=== PATIENT | male | born 1955 | race Caucasian/White ===

== ENCOUNTER 2018-04-06 07:10 | Day surgery (SDC) | payer OTHER, SELFPAY ==
--- NOTE | 2018-04-06 | PATH_ITS ---
[facility] Accession Number: [id number] . 01 Material submitted: . RECTAL POLYP AT 15CM . 02 Diagnosis: Rectal Polyp at 15 cm: Hyperplastic polyp. MRV/04/08/2018 . 02 Electronically signed: . Kobe Mayen MD, PhD, Pathologist NPI- [id number] . 01 Gross description: . RECTAL POLYP AT 15CM: Received in formalin are 2 fragment(s) of morton, soft tissue measuring 0.4 x 0.3 x 0.3 cm to 0.3 x 0.2 x 0.2 cm submitted entirely in 1 cassette(s) /CKI /CKI . 02 Pathologist provided ICD-10: K62.1 . 02 CPT . 024658 Performed at: 01 [facility] [address] [facility], [place], [place] [id number] MD Amrit Wright MD Phone: [phone] Performed at: 02 [facility] [address] [place], [place] [id number] MD Sukh Dick MD Phone: [phone]
[2018-04-06 08:01] VITALS: BP 154/80; PULSE 45; RESP 16; TEMP 36.1; O2SAT 100
[2018-04-06] MEDS: SODIUM CHLORIDE 0.9% 1,000 ML 21 ML IV (08:14)
--- NOTE | 2018-04-06 08:36 | PM.HP.1 ---
History of Present Illness Date Patient Seen: 04/06/18 Time Patient Seen: 08:36 Chief complaint: colonoscopy 11328 Narrative: 63-year-old male with family history of colon cancer as well as personal history of colon polyps who last underwent surveillance colonoscopy 6 years ago and presents now for follow-up. He has no new complaints. Denies any gastrointestinal symptoms. Has no recent problems with nausea, vomiting, abdominal pain, loss of appetite, unexplained weight loss, change in bowel habits, diarrhea, constipation, melena, hematochezia, or bright red blood per rectum. Patient History Surgical History History of lithotripsy (03/14/16) History of vasectomy Status post colonoscopy Status post hernia repair Family & Social History Family History: Reviewed 04/06/18 by Shabbir Chavarria MD Social History: household members spouse Meds Home Medications Medication Instructions Recorded Confirmed Type No Known Home Medications 04/06/18 04/06/18 History Allergies Allergy/AdvReac Type Severity Reaction Status Date / Time No Known Drug Allergies Allergy Verified 04/06/18 07:53 Review of Systems Review of Systems All systems reviewed & are unremarkable except as noted in HPI and below Exam Vital Signs (past 8 hours): - 04/06/18 08:01 Temperature 96.9 F L Pulse Rate 45 L Respiratory Rate 16 Blood Pressure 154/80 H Pulse Oximetry 100 Oxygen Delivery Method Room Air Narrative Exam Narrative: Well-nourished well-developed male in no acute distress. Alert oriented x3. Sclera nonicteric No carotid bruits Chest clear to auscultation bilaterally with regular rate and rhythm. He is in sinus bradycardia at baseline however. No murmurs, gallops, rubs. Abdomen soft, nondistended, nontender, no masses Extremities show no clubbing, cyanosis, or edema Objective Labs Labs: No recent laboratory or radiographic studies for review Assessment & Plan (1) Family history of colon cancer: Current visit: Yes Status: Acute Plan: Assessment/Plan Narrative: 63-year-old male with family history of colon cancer and personal history colon polyps now requiring surveillance for such. His last colonoscopy was 6 years ago. He returns now for follow-up. Colonoscopy is once again recommended. Technical details of the procedure were explained. Risks, benefits, alternatives were discussed. Risks including but not limited to sedation, aspiration, bleeding, pain, missed lesion, incomplete examination, need for further radiographic studies, colonic perforation, and need for major abdominal surgery were all discussed in detail. Questions were answered to his satisfaction, and he voiced understanding. Consent was placed on the chart. We will proceed as above.
--- NOTE | 2018-04-06 08:40 | PM.PREOP ---
Pre-operative Note Interval Note Pre-op Check: History & Physical Reviewed by Physician, Exam Performed and History & Physical exam performed today H&P completed within 30 days and has changed as indicated here:: Patient seen and examined today. History and physical examination on the chart. Proceed with colonoscopy today as planned. ASA Class (for procedural sedation): I
[2018-04-06] MEDS: MIDAZOLAM 5 MG/5 ML VIAL IV (08:45)
[2018-04-06] MEDS: fentaNYL 250 MCG/5 ML INJ IV (08:45)
--- NOTE | 2018-04-06 08:59 | PM.OP.ENDO ---
Operative Date/Time/Diagnoses - Date of procedure: 04/06/18 Time of procedure: 08:59 Pre-op diagnosis: Personal history of colon polyps and family history of colon cancer Post-op diagnosis: other (Rectal polyp) Procedure & Clinicians Study performed: 1. Sedation per surgeon 2. Colonoscopy with cold forceps polypectomy Same procedure as scheduled: Yes Indications: 63-year-old male with personal history of colon polyps and family history of colon cancer. His last endoscopy was 6 years ago. He require surveillance. Colonoscopy is once again recommended. Surgeon: Shabbir Chavarria Procedure Notes SCOAP/Timeout: Yes Procedure in detail: After obtaining informed consent, the patient was brought to the GI suite and placed in the left lateral decubitus position on the examination table. After placement of appropriate monitors, the patient was given incremental doses of Versed and Fentanyl until an appropriate level of sedation was achieved. A time out was held per SCOAP protocol. A digital rectal examination was performed and did not reveal any masses or obstructing lesions. The colonoscope was gently passed into the patient's anus and the entire colon navigated to the level of the cecum with minimal difficulty. Once in the cecum, the scope was withdrawn being sure to go before and beyond all mucosal folds and prominences and get an excellent examination. The findings are noted above. At the level of the rectal vault, the scope was retroflexed and the internal anal canal was examined. The scope was straightened and air aspirated from the colon. The instrument was removed from the patient's body and the procedure was concluded. The patient was allowed to awaken from sedation without difficulty and taken to the post-anesthesia care unit in good condition. Scope withdrawal time: 7:44 min Sedation minutes: 14 Findings: diverticulosis and polyp (Rectum at 15 cm) Specimen(s): other (Rectal polyp at 15 cm) Complications: none Recommendations: Colonscopy in 5 years, High fiber diet and Will call with biopsy results Plan for aftercare: 1. Discharged home Follow up: as needed Disposition: same day surgery
[2018-04-06 09:06] VITALS: BP 121/68; PULSE 49; RESP 15; TEMP 36.5; O2SAT 100
[2018-04-06 09:39] VITALS: BP 126/66; PULSE 50; RESP 16; TEMP 36.6; O2SAT 100
== END 2018-04-06 09:38 | disposition home or self-care (01) ==
PROVIDERS: PCP Nurse Practitioner; Visit Provider Surgery
PROC: 0DJD8ZZ Inspection of Lower Intestinal Tract, Via Natural or Artificial Opening Endoscopic (ICD-10-PCS; CPT 45378; principal; 2018-04-06 08:45)
DX: Z80.0 Family history of malignant neoplasm of digestive organs (principal); Z86.010 Personal history of colon polyps; K57.30 Diverticulosis of large intestine without perforation or abscess without bleeding; K62.1 Rectal polyp
CPT/HCPCS: 45380; 99152; J2250; J3010

== ENCOUNTER → 2018-05-20 08:57 | Outpatient (CLI) | payer OTHER, SELFPAY ==
--- NOTE | 2018-05-20 09:06 | DI.RAD.S_ITS ---
PROCEDURE: XR ABDOMEN 1V INDICATIONS: CALCULUS OF KIDNEY TECHNIQUE: One view of the abdomen acquired. COMPARISON: , CT, IVP (ABD & PEL WWO CONTRAST), 02/19/2016, 14:33. [facility], CR, XR KUB, 10/24/2016, 7:20. , CR, KUB XRAY (1 VIEW ABDOMEN), 11/07/2016, 12:57. FINDINGS: Surgical changes and devices: None. Bowel: Bowel gas pattern is normal. Soft tissues: No new suspicious abdominal calcifications there appears to be a single identifiable faintly visualized calculus at the lower third collecting system of the left kidney a definite right-sided urinary tract stone cannot be seen by today's study.. Visualized solid organ contours appear normal in size. Bones: No suspicious bony lesions. IMPRESSION: Small 2 mm calculus lower third collecting system left kidney. Dictated by: Mynor Sánchez M.D. on 05/20/2018 at 9:35 Approved by: Mynor Sánchez M.D. on 05/20/2018 at 9:37
[2018-05-22 13:32] LABS: PSA Free % 14 % (calc) (> 25); PSA, Total 5.6 ng/mL (< 4.1)
== END ==
PROVIDERS: PCP Nurse Practitioner; Visit Provider Urology
DX: N20.0 Calculus of kidney (principal); Z12.5 Encounter for screening for malignant neoplasm of prostate
CPT/HCPCS: 36415; 74018; 84153; 84154

== ENCOUNTER → 2018-11-12 07:37 | Outpatient (CLI) | payer OTHER, SELFPAY ==
[2018-11-12 08:17] LABS: Add Manual Diff / Slide Review NO; Basophils Absolute Auto 0 /uL (0-100); Basophils Percent Auto 0.7 % (0-2); Eosinophils Absolute Auto 100 /uL (0-450); Eosinophils Percent Auto 3.3 % (2-4); Hematocrit 48.5 % (41-53); Hemoglobin 16.2 g/dL (13.5-17.5); Lymphocytes Absolute Auto 1600 /uL (1100-4500); Lymphocytes Percent Auto 36.8 % (25-40); Mean Corpuscular HGB Conc 33.3 % (30-36); Mean Corpuscular Hemoglobin 32.7 PG (26-34); Mean Corpuscular Volume 98.2 fL (80-100); Monocytes Absolute Auto 500 /uL (0-900); Monocytes Percent Auto 10.7 % (3-14); Neutrophils Absolute Auto 2200 /uL (1500-7000); Neutrophils Percent Auto 48.5 % (50-75); Platelet Count 218 X10^3/uL (150-400); Red Blood Cell Count 4.93 X10^6/uL (4.5-5.9); Red Cell Distribution Width 13.9 % (11.6-14.8); White Blood Cell Count 4.5 X10^3/uL (4.5-11.0)
[2018-11-12 09:05] LABS: Alanine Aminotransferase 37 IU/L (21-72); Albumin 4.7 g/dL (3.5-5.0); Albumin Globulin Ratio 1.4 (1.0-2.8); Alkaline Phosphatase 53 U/L (38-126); Aspartate Aminotransferase 40 IU/L (17-59); Bilirubin Total 0.7 mg/dL (0.2-1.3); Blood Urea Nitrogen 18 mg/dL (9-20); Calcium 9.4 mg/dL (8.4-10.2); Carbon Dioxide 27 mmol/L (22-32); Chloride 104 mmol/L (98-107); Cholesterol 186 mg/dL (140-199); Estimated Glomerular Filt Rate > 60.0 mL/min (>60); Globulin 3.4 g/dL (1.7-4.1); Glucose 86 mg/dL (80-110); HDL Cholesterol 95 mg/dL (40-60); HEMOLYSIS < 15 (0-50); LDL Cholesterol Calculated 80 mg/dL (<100); Potassium 4.8 mmol/L (3.4-5.1); Sodium 141 mmol/L (137-145); Total Protein 8.1 g/dL (6.3-8.2); Triglycerides 57 mg/dL (35-150)
[2018-11-12 09:26] LABS: Prostate Specific Antigen Scrn 4.37 ng/mL (0.1-4.0)
[2018-11-12 09:27] LABS: TSH w/ Reflex to FT4 1.08 uIU/mL (0.47-4.68)
== END ==
PROVIDERS: Visit Provider Family Medicine
DX: Z00.00 Encounter for general adult medical examination without abnormal findings (principal); Z12.11 Encounter for screening for malignant neoplasm of colon; Z12.5 Encounter for screening for malignant neoplasm of prostate
CPT/HCPCS: 36415; 80053; 80061; 84443; 85025; G0103

== ENCOUNTER → 2019-11-10 08:39 | Outpatient (CLI) | payer OTHER, SELFPAY ==
[2019-11-10 08:58] LABS: Hematocrit 45.4 % (41-53); Hemoglobin 15.2 g/dL (13.5-17.5); Mean Corpuscular HGB Conc 33.4 % (30-36); Mean Corpuscular Hemoglobin 32.5 PG (26-34); Mean Corpuscular Volume 97.4 fL (80-100); Platelet Count 201 X10^3/uL (150-400); Red Blood Cell Count 4.66 X10^6/uL (4.5-5.9); Red Cell Distribution Width 13.9 % (11.6-14.8); White Blood Cell Count 3.2 X10^3/uL (4.5-11.0)
[2019-11-10 09:08] LABS: Alanine Aminotransferase 29 IU/L (<50); Albumin 4.3 g/dL (3.5-5.0); Albumin Globulin Ratio 1.3 (1.0-2.8); Alkaline Phosphatase 51 U/L (38-126); Aspartate Aminotransferase 37 IU/L (17-59); Bilirubin Total 1.1 mg/dL (0.2-1.3); Blood Urea Nitrogen 18 mg/dL (9-20); Calcium 9.2 mg/dL (8.4-10.2); Carbon Dioxide 27 mmol/L (22-32); Chloride 102 mmol/L (98-107); Estimated Glomerular Filt Rate > 60.0 mL/min (>60); Globulin 3.4 g/dL (1.7-4.1); Glucose 107 mg/dL (80-110); HEMOLYSIS < 15 (0-50); Potassium 4.5 mmol/L (3.4-5.1); Sodium 139 mmol/L (137-145); Total Protein 7.7 g/dL (6.3-8.2)
[2019-11-10 09:33] LABS: Neutrophils Absolute Manual 1888 /uL (3000-5900); Total Cells Counted 100
[2019-11-10 09:34] LABS: RBC Morphology Normal Morphology
[2019-11-10 09:38] LABS: Prostate Specific Antigen Scrn 3.68 ng/mL (0.1-4.0)
== END ==
PROVIDERS: PCP Nurse Practitioner; Visit Provider Nurse Practitioner
DX: Z00.00 Encounter for general adult medical examination without abnormal findings (principal)
CPT/HCPCS: 36415; 80053; 85025; G0103

== ENCOUNTER → 2020-02-04 08:33 | Outpatient (CLI) | payer OTHER, SELFPAY ==
[2020-02-04 10:42] LABS: Cholesterol 200 mg/dL (140-199); HDL Cholesterol 102 mg/dL (40-60); LDL Cholesterol Calculated 88 mg/dL (<100); Triglycerides 50 mg/dL (35-150)
[2020-02-04 11:08] LABS: Thyroid Stimulating Hormone 1.36 uIU/mL (0.47-4.68)
[2020-02-07 13:09] LABS: Add Manual Diff / Slide Review NO; Basophils Absolute Auto 0 /uL (0-100); Basophils Percent Auto 0.8 % (0-2); Eosinophils Absolute Auto 200 /uL (0-450); Eosinophils Percent Auto 3.6 % (2-4); Hematocrit 48.3 % (41-53); Lymphocytes Absolute Auto 1500 /uL (1100-4500); Lymphocytes Percent Auto 33.9 % (25-40); Mean Corpuscular HGB Conc 33.2 % (30-36); Mean Corpuscular Hemoglobin 33.2 PG (26-34); Monocytes Absolute Auto 400 /uL (0-900); Monocytes Percent Auto 9.9 % (3-14); Neutrophils Absolute Auto 2200 /uL (1500-7000); Neutrophils Percent Auto 51.8 % (50-75); Platelet Count 208 X10^3/uL (150-400); Red Blood Cell Count 4.84 X10^6/uL (4.5-5.9); Red Cell Distribution Width 14.2 % (11.6-14.8); White Blood Cell Count 4.3 X10^3/uL (4.5-11.0)
== END ==
PROVIDERS: PCP Nurse Practitioner; Referring Provider Nurse Practitioner; Visit Provider Nurse Practitioner
DX: Z00.00 Encounter for general adult medical examination without abnormal findings (principal); Z13.220 Encounter for screening for lipoid disorders; Z13.29 Encounter for screening for other suspected endocrine disorder; D72.819 Decreased white blood cell count, unspecified; R89.9 Unspecified abnormal finding in specimens from other organs, systems and tissues
CPT/HCPCS: 36415; 80061; 84439; 84443; 84481; 85025

== ENCOUNTER → 2021-04-02 11:44 | Outpatient (CLI) | payer MEDICARE, SELFPAY ==
[2021-04-02 12:06] LABS: Bacteria Urine None Seen; RBC Urine None Seen (0-5/HPF); WBC Urine None Seen (0-5/HPF)
[2021-04-02 12:52] LABS: Appearance Urine UA CLEAR; Bilirubin Urine UA NEGATIVE (NEGATIVE); Color Urine UA YELLOW; Glucose Urine UA NEGATIVE (Negative); Ketones Urine UA TRACE (NEGATIVE); Leukocyte Esterase Urine UA NEGATIVE (NEGATIVE); Nitrite Urine UA NEGATIVE (Negative); Occult Blood Urine UA NEGATIVE (Negative); Protein Urine UA NEGATIVE (Negative); Specific Gravity Urine UA 1.025 (1.000-1.035); Urobilinogen Urine UA 0.2 E.U./dL (0.2); pH Urine UA 5.5 (4.5-8.0)
[2021-04-02 12:54] LABS: Hemoglobin A1C% w Est Avg Glu 5.1 % (4.0-6.0)
[2021-04-02 12:58] LABS: Add Manual Diff / Slide Review NO; Basophils Absolute Auto 0 /uL (0-100); Basophils Percent Auto 0.5 % (0-2); Eosinophils Absolute Auto 100 /uL (0-450); Eosinophils Percent Auto 3.2 % (2-4); Hematocrit 44.8 % (41-53); Lymphocytes Absolute Auto 1200 /uL (1100-4500); Mean Corpuscular HGB Conc 33.6 % (30-36); Mean Corpuscular Hemoglobin 33.2 PG (26-34); Mean Corpuscular Volume 98.9 fL (80-100); Monocytes Absolute Auto 400 /uL (0-900); Monocytes Percent Auto 10.5 % (3-14); Neutrophils Absolute Auto 2300 /uL (1500-7000); Neutrophils Percent Auto 56.8 % (50-75); Platelet Count 202 X10^3/uL (150-400); Red Blood Cell Count 4.53 X10^6/uL (4.5-5.9); Red Cell Distribution Width 13.9 % (11.6-14.8)
[2021-04-02 13:08] LABS: Alanine Aminotransferase 28 IU/L (<50); Albumin 4.4 g/dL (3.5-5.0); Albumin Globulin Ratio 1.4 (1.0-2.8); Alkaline Phosphatase 53 U/L (38-126); Aspartate Aminotransferase 36 IU/L (17-59); BUN Creatinine Ratio 22.5 (6-22); Bilirubin Total 0.9 mg/dL (0.2-1.3); Blood Urea Nitrogen 18 mg/dL (9-20); Calcium 9.2 mg/dL (8.4-10.2); Carbon Dioxide 27 mmol/L (22-32); Chloride 105 mmol/L (98-107); Cholesterol 196 mg/dL (140-199); Estimated Glomerular Filt Rate > 60.0 mL/min (>60); Globulin 3.2 g/dL (1.7-4.1); Glucose 88 mg/dL (80-110); HDL Cholesterol 100 mg/dL (40-60); HEMOLYSIS < 15 (0-50); LDL Cholesterol Calculated 88 mg/dL (<100); Potassium 4.7 mmol/L (3.4-5.1); Sodium 141 mmol/L (137-145); Total Protein 7.6 g/dL (6.3-8.2); Triglycerides 40 mg/dL (35-150)
[2021-04-02 13:21] LABS: Culture Indicated Urine Cult Not Indicated; Urine Comments Microscopic Normal
[2021-04-02 13:35] LABS: Prostate Specific Antigen 3.73 ng/mL (0.10-4.00)
[2021-04-02 13:46] LABS: Free T3, Triiodothyronine Free 3.93 pg/mL (2.77-5.27); Free T4, Direct Thyroxine 0.74 ng/dL (0.78-2.19)
[2021-04-02 14:00] LABS: Thyroid Stimulating Hormone 0.429 uIU/mL (0.47-4.68)
[2021-04-03 09:17] LABS: Fecal Immunochemical Test Negative (Negative)
== END ==
PROVIDERS: PCP Nurse Practitioner; Referring Provider Nurse Practitioner; Visit Provider Nurse Practitioner
DX: D72.819 Decreased white blood cell count, unspecified (principal); R79.89 Other specified abnormal findings of blood chemistry; R97.20 Elevated prostate specific antigen [PSA]; R31.9 Hematuria, unspecified; Z12.11 Encounter for screening for malignant neoplasm of colon; Z13.6 Encounter for screening for cardiovascular disorders; Z12.5 Encounter for screening for malignant neoplasm of prostate; Z13.1 Encounter for screening for diabetes mellitus
CPT/HCPCS: 36415; 80053; 80061; 81001; 82274; 83036; 84153; 84439; 84443; 84481; 85025

== ENCOUNTER → 2021-04-05 09:35 | Outpatient (CLI) | payer MEDICARE, SELFPAY ==
--- NOTE | 2021-04-05 09:36 | DI.US.S_ITS ---
PROCEDURE: US ABD AORTA ANEURYSM SCREEN INDICATIONS: HX SMOKING TECHNIQUE: Real time scanning was performed of the aorta and iliac arteries, with image documentation. COMPARISON: None. FINDINGS: Aorta: Proximal aortic diameter could not be measured due to overlying bowel gas. Mid-aorta measures 1.8 cm. Distal aortic diameter is 1.8 cm. Iliac arteries: Right common iliac artery measures 1.4 cm. Left common iliac artery measures 1.3 cm. IMPRESSION: No aneurysm seen. Proximal abdominal aorta could not be seen due to bowel gas. Dictated by: Mynor Sánchez M.D. on 04/05/2021 at 9:54 Approved by: Mynor Sánchez M.D. on 04/05/2021 at 9:55
== END ==
PROVIDERS: PCP Nurse Practitioner; Referring Provider Nurse Practitioner; Visit Provider Nurse Practitioner
DX: Z13.6 Encounter for screening for cardiovascular disorders (principal); Z87.891 Personal history of nicotine dependence
CPT/HCPCS: 76706

== ENCOUNTER → 2021-09-10 07:12 | Outpatient (CLI) | payer MEDICARE, SELFPAY ==
--- NOTE | 2021-09-10 | DI.MRI.S_ITS ---
PROCEDURE: MR SHOULDER RT WO CON INDICATIONS: LEFT KNEE PAIN; RIGHT SHOULDER PAIN TECHNIQUE: Noncontrast oblique coronal T2 fast spin echo with fat saturation, oblique sagittal T1 spin echo and T2 fast spin echo with fat saturation, axial T1 spin echo and T2 fast spin echo with fat saturation through the shoulder. COMPARISON: None. FINDINGS: Image quality: Excellent. Rotator cuff: Advanced tendinopathy with full-thickness tear of the supraspinatus (series 8, image 13; series 10, image 5). Moderate infraspinatus tendinopathy with partial articular surface and interstitial tears. T2 hyperintense signal within the subscapularis musculotendinous junction, compatible with interstitial tear. Mild to moderate subscapularis tendinopathy. The teres minor is unremarkable. Sagittal images demonstrate no significant muscle atrophy. Bones and bursae: No bone marrow contusions or fractures. Moderate arthrosis of the acromioclavicular joint. No os acromiale. Subacromial/subdeltoid fluid is seen, which may reflect bursitis and/or joint fluid. Capsule and soft tissues: A 3.8 mm T2 hyperintense lesion is seen in the posterior inferior labrum (series 6, image 16), most consistent with labral cyst /occult labral tear. The long head of the biceps tendon demonstrates normal location and morphology. The rotator interval demonstrates no evidence of fibrosis. The coracoclavicular ligament is normal in thickness. IMPRESSION: 1. Advanced supraspinatus tendinopathy with full-thickness tear. 2. Moderate infraspinatus tendinopathy with partial articular surface and interstitial tears. 3. Subacromial/subdeltoid fluid, which may reflect bursitis and/or joint fluid. 4. Moderate arthrosis of the AC joint. 5. Mild to moderate subscapularis tendinopathy with interstitial tear. Dictated by: Kristopher Guillaume M.D. on 09/10/2021 at 12:10 Approved by: Kristopher Guillaume M.D. on 09/10/2021 at 12:24
--- NOTE | 2021-09-10 | DI.MRI.S_ITS ---
PROCEDURE: MR KNEE LT WO CON INDICATIONS: LEFT KNEE PAIN; RIGHT SHOULDER PAIN TECHNIQUE: Noncontrast sagittal PD fast spin echo and T2 fast spin echo with fat saturation, sagittal 3-D FLASH with fat saturation; coronal T1 spin echo and PD fast spin echo with fat saturation, and axial PD fast spin echo with fat saturation through the knee. COMPARISON: [facility], CR, XR KNEE ARTHRITIC SERIES LT, 08/20/2021, 8:47. FINDINGS: Image quality: Excellent. Menisci: There is complex tearing of the posterior horn and body of the medial meniscus including a horizontal oblique component at the posterior horn extending to the middle third of the tibial articular surface as well as truncation of the meniscal body portion that is suggestive of a deep radial component versus degenerated tear with maceration. The lateral meniscus demonstrates mild intermediate intrasubstance signal without extension to an articular surface, consistent with mild intrasubstance degeneration. Cruciate ligaments: The anterior and posterior cruciate ligaments appear intact. Medial structures: The medial collateral ligament appears intact. The semimembranosus tendon insertions and meniscocapsular junction appear intact. Visualized portions of the pes anserinus tendons appear normal. No abnormal bursal fluid. Lateral structures: The lateral collateral ligament, long and short heads of the biceps femoris tendon appear intact. The popliteus tendon appears intact. No signs of posterolateral corner injury. Iliotibial band appears normal. Anterior structures: The quadriceps and patellar tendons appear intact. Patellar alignment is normal. No femoral trochlear dysplasia or ventral trochlear prominence. No edema in the infrapatellar fat pad. Bones and cartilage: No bone marrow contusions or fractures. A 1 cm T2-hyperintense benign enchondroma is seen in the medial distal femoral metaphysis. There is high-grade partial-thickness cartilage thinning throughout the weight-bearing portion of the medial femorotibial compartment with superimposed small foci of full-thickness cartilage loss and subchondral edema as well as marginal osteophyte formation. Moderate partial-thickness cartilage irregularity is seen in the central to posterior weight-bearing portion of the lateral femoral condyle. There is full-thickness cartilage fissuring in the medial femoral trochlea and mild surface irregularity throughout the patellar cartilage. Degenerative changes are also seen at the proximal tibiofibular joint with subchondral cystic changes and mild marginal osteophyte formation. Joint space: A small joint effusion is present. There is a small medial popliteal cyst. A small lobular ganglion cyst is seen extending inferomedially from the proximal tibiofibular joint measuring approximately 12 x 10 mm. IMPRESSION: 1. 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 Grade 2-3 chondromalacia is seen in the lateral compartment, and there is grade 2 chondromalacia and deep cartilage fissuring in the anterior compartment. 2. Complex tearing of the medial meniscus with horizontal oblique and radial components, which may be degenerative in nature. 3. Mild intrasubstance degeneration involving the lateral meniscus. 4. Small joint effusion. Small medial popliteal cyst. Dictated by: Christian Summers M.D. on 09/10/2021 at 9:51 Approved by: Christian Summers M.D. on 09/10/2021 at 10:05
== END ==
PROVIDERS: PCP Nurse Practitioner; Referring Provider Orthopaedic Surgery; Visit Provider Orthopaedic Surgery
DX: S83.231A Complex tear of medial meniscus, current injury, right knee, initial encounter (principal); M23.52 Chronic instability of knee, left knee; M17.12 Unilateral primary osteoarthritis, left knee; M71.22 Synovial cyst of popliteal space [Baker], left knee; M25.461 Effusion, right knee; M94.262 Chondromalacia, left knee; M25.562 Pain in left knee; M75.121 Complete rotator cuff tear or rupture of right shoulder, not specified as traumatic; M19.011 Primary osteoarthritis, right shoulder; M25.511 Pain in right shoulder
CPT/HCPCS: 73221; 73721

== ENCOUNTER → 2022-10-09 14:06 | Outpatient (CLI) | payer MEDICARE, SELFPAY ==
--- NOTE | 2022-10-09 14:08 | DI.RAD.S_ITS ---
PROCEDURE: XR FINGER LT MIN 2V INDICATIONS: Pain over 1st MCP TECHNIQUE: AP hand, 2 views of the 1st finger(s) acquired. COMPARISON: None. FINDINGS: Bones: No fractures or dislocations. No suspicious bony lesions. Mild periarticular osteophyte formation at the scaphoid trapezial, 1st carpometacarpal joint, and 1st metacarpophalangeal joint. Soft tissues: No suspicious soft tissue calcifications. IMPRESSION: Osteoarthritis. No acute fracture. No osseous lesion. If symptoms and/or clinical suspicion for pathology persist, further assessment with repeat, or advanced imaging (e.g., CT, MRI, or bone scan) may be helpful for further assessment. Dictated by: Naeem Jimenez M.D. on 10/09/2022 at 15:00 Transcribed by: RIGO on 10/09/2022 at 15:01 Approved by: Naeem Jimenez M.D. on 10/09/2022 at 17:55
== END ==
PROVIDERS: PCP Family Medicine; Referring Provider Family Medicine; Visit Provider Family Medicine
DX: S60.012A Contusion of left thumb without damage to nail, initial encounter (principal); M19.042 Primary osteoarthritis, left hand; X58.XXXA Exposure to other specified factors, initial encounter
CPT/HCPCS: 73140

== ENCOUNTER → 2023-01-25 09:38 | Outpatient (CLI) | payer MEDICARE, SELFPAY | PROVIDERS: PCP Family Medicine; Visit Provider Nurse Practitioner Family | DX: R10.9 Unspecified abdominal pain (principal) | CPT/HCPCS: 87086 ==

== ENCOUNTER → 2023-01-25 09:44 | Outpatient (CLI) | payer MEDICARE, SELFPAY ==
--- NOTE | 2023-01-25 09:46 | DI.RAD.S_ITS ---
PROCEDURE: XR KUB INDICATIONS: Possible kidney stones TECHNIQUE: One view of the abdomen acquired. COMPARISON: [facility], , KUB XRAY (1 VIEW ABDOMEN), 11/07/2016, 12:57. FINDINGS: Surgical changes and devices: None. Bowel: Bowel gas pattern is normal. Soft tissues: Small calcifications are noted projecting in left kidney measures 4 mm in size. Faint 2 mm density is also noted in lower pole right kidney. Visualized solid organ contours appear normal in size. Bones: No suspicious bony lesions. IMPRESSION: Finding is suggestive of tiny bilateral renal calculi. No bowel obstruction or gross free air. Dictated by: John Morales M.D. on 01/25/2023 at 10:59 Approved by: John Morales M.D. on 01/25/2023 at 11:00
== END ==
PROVIDERS: PCP Family Medicine; Referring Provider Nurse Practitioner Family; Visit Provider Nurse Practitioner Family
DX: R30.0 Dysuria (principal); R10.9 Unspecified abdominal pain
CPT/HCPCS: 74018; 87086

== ENCOUNTER → 2023-01-30 13:16 | Outpatient (CLI) | payer MEDICARE, SELFPAY ==
--- NOTE | 2023-01-30 13:17 | DI.CT.S_ITS ---
PROCEDURE: CT ABDOMEN PELVIS WO CON INDICATIONS: bilat kidney stones, flank pain TECHNIQUE: After the administration of oral contrast, 5 mm thick sections acquired from the diaphragms to the symphysis. 5 mm coronal and sagittal reformats were performed. For radiation dose reduction, the following was used: automated exposure control, adjustment of mA and/or kV according to patient size. COMPARISON: None. FINDINGS: Lower thorax: The lung bases are clear. Heart size normal. No hiatal hernia. Liver: The liver is diffusely decreased in attenuation without focal mass lesion. Biliary system: No calcified cholelithiasis or pericholecystic inflammation. No intra or extrahepatic bile duct dilatation. Pancreas: Unremarkable without mass or inflammation evident. Spleen: Normal in size and density. Adrenals: Normal morphology and density. Reproductive system: Unremarkable as visualized. Urinary system: 5 mm ureteral calcification distal right ureter results in moderate right hydronephrosis and hydroureter. Several additional nonobstructing calculi noted predominantly in left kidney measuring up to 5 mm Gastrointestinal system: The bowel is unremarkable without evidence of bowel obstruction or inflammation. The stomach appears unremarkable. Moderate fecal debris in the rectum Appendix: Normal appendix identified. No evidence of appendicitis. Peritoneal spaces: No mesenteric or retroperitoneal adenopathy. No free air. No free fluid. Vasculature: The IVC, aorta and iliac vasculature are unremarkable. Abdominal wall: Abdominal wall intact without evidence of ventral or inguinal hernias. Musculoskeletal: Normal bone mineralization. Degenerative disc disease and arthropathy noted in lower lumbar spine. No acute fractures. IMPRESSION: 1. Small 5 mm distal right ureteral calculus results in moderate right hydronephrosis and hydroureter Approved by: Pietro Villegas M.D. on 01/30/2023 at 20:25
== END ==
PROVIDERS: PCP Family Medicine; Referring Provider Family Medicine; Visit Provider Family Medicine
DX: N13.2 Hydronephrosis with renal and ureteral calculous obstruction (principal); R10.9 Unspecified abdominal pain; M10.9 Gout, unspecified
CPT/HCPCS: 74176

== ENCOUNTER → 2023-02-18 11:30 | Outpatient (CLI) | payer MEDICARE, SELFPAY ==
[2023-02-18 13:03] LABS: Add Manual Diff / Slide Review NO; Basophils Absolute Auto 0 /uL (0-100); Basophils Percent Auto 0.6 % (0-2); Eosinophils Absolute Auto 100 /uL (0-450); Eosinophils Percent Auto 1.7 % (2-4); Hematocrit 41.5 % (41-53); Hemoglobin 14.2 g/dL (13.5-17.5); Lymphocytes Absolute Auto 1100 /uL (1100-4500); Lymphocytes Percent Auto 29.7 % (25-40); Mean Corpuscular HGB Conc 34.2 % (30-36); Mean Corpuscular Hemoglobin 32.8 PG (26-34); Mean Corpuscular Volume 95.8 fL (80-100); Monocytes Absolute Auto 400 /uL (0-900); Monocytes Percent Auto 11.8 % (3-14); Neutrophils Absolute Auto 2100 /uL (1500-7000); Neutrophils Percent Auto 56.2 % (50-75); Platelet Count 192 X10^3/uL (150-400); Red Blood Cell Count 4.33 X10^6/uL (4.5-5.9); White Blood Cell Count 3.7 X10^3/uL (4.5-11.0)
[2023-02-18 13:32] LABS: Alanine Aminotransferase 44 IU/L (<50); Albumin 4.1 g/dL (3.5-5.0); Albumin Globulin Ratio 1.3 (1.0-2.8); Alkaline Phosphatase 54 U/L (38-126); Aspartate Aminotransferase 37 IU/L (17-59); BUN Creatinine Ratio 23.4 (6-22); Bilirubin Total 0.9 mg/dL (0.2-1.3); Blood Urea Nitrogen 18 mg/dL (9-20); Calcium 8.8 mg/dL (8.4-10.2); Carbon Dioxide 25 mmol/L (22-32); Chloride 105 mmol/L (98-107); Cholesterol 169 mg/dL (140-199); Estimated Glomerular Filt Rate > 60 mL/min (>60); Globulin 3.2 g/dL (1.7-4.1); Glucose 94 mg/dL (80-110); HDL Cholesterol 92 mg/dL (40-60); HEMOLYSIS < 15 (0-50); LDL Cholesterol Calculated 70 mg/dL (<100); Potassium 4.6 mmol/L (3.4-5.1); Sodium 136 mmol/L (137-145); Total Protein 7.3 g/dL (6.3-8.2); Triglycerides 33 mg/dL (35-150)
[2023-02-18 14:01] LABS: Prostate Specific Antigen Scrn 3.83 ng/mL (0.1-4.0)
[2023-02-18 14:05] LABS: TSH w/ Reflex to FT4 0.68 uIU/mL (0.47-4.68)
[2023-02-19 05:19] LABS: Labcorp Hemoglobin (Hb) A1c 5.6 % (4.8-5.6)
== END ==
PROVIDERS: PCP Family Medicine; Referring Provider Family Medicine; Visit Provider Family Medicine
DX: E03.8 Other specified hypothyroidism; R97.20 Elevated prostate specific antigen [PSA]; Z12.5 Encounter for screening for malignant neoplasm of prostate; N20.0 Calculus of kidney; D72.819 Decreased white blood cell count, unspecified; Z00.00 Encounter for general adult medical examination without abnormal findings
CPT/HCPCS: 36415; 80053; 80061; 83036; 84443; 85025; G0103

== ENCOUNTER 2023-07-10 09:10 | Day surgery (SDC) | payer MEDICARE, SELFPAY ==
--- NOTE | 2023-07-10 | PATH_ITS ---
[facility] Accession Number: [id number] No. of containers..02 Tissue . 01 Material submitted: . PART A: colon - ASCENDING POLYPS PART B: rectum - RECTAL TISSUE . 01 Diagnosis: A. Ascending Colon Polyps, Polypectomy: Tubular adenoma(s). Sessile serrated adenoma(s). . B. Rectum, Biopsy: Rectal mucosa with changes of mucosal prolapse and erosion. MRV 07/15/2023 2253 Local . 01 Electronically signed: . Gladis Blackman MD, Pathologist NPI- [id number] . 01 Gross description: . Part A: ASCENDING POLYPS: Received in formalin is multiple fragment(s) of morton, soft tissue measuring 1.5 x 1.0 x 0.2 cm in aggregate submitted entirely in 1 cassette(s) Part B: RECTAL TISSUE: Received in formalin is 1 fragment(s) of morton, soft tissue measuring 0.3 x 0.2 x 0.2 cm submitted entirely in 1 cassette(s) /AAY 07/11/2023 0325 Local . 01 Pathologist provided ICD-10: D12.6 . 01 CPT . 404268, [id number] Specimen Comment: A courtesy copy of this report has been sent to [phone] Performed at: 01 [facility] [address] [place] [address] [address], [place], [place] [id number] MD Amrit Wright MD Phone: [phone]
[2023-07-10 09:30] VITALS: BP 162/90; PULSE 48; RESP 16; TEMP 36.1; O2SAT 98; BMI 25.3
[2023-07-10] MEDS: LACTATED RINGERS 1,000 ML 42 ML IV (09:48)
--- NOTE | 2023-07-10 11:09 | P.HP_ITS ---
History of Present Illness History of Present Illness Date Patient Seen: 07/10/23 Time Patient Seen: 11:09 Chief complaint: SDC Narrative: Ty alva is a 68-year-old man who had a colonoscopy in 2018 with a polyp removed. Has no first-degree relatives with colon cancer. [facility] Medical History (Updated 04/07/23 @ 09:31 by Jac Villagomez DO) Elevated PSA measurement Encounter for initial annual wellness visit (AWV) in Medicare patient Family history of colon cancer Gout History of sun exposure, moderate Keratosis Leukopenia Subclinical hypothyroidism Swallowing difficulty Surgical History History of lithotripsy (03/14/16) History of vasectomy Status post colonoscopy Status post hernia repair Family History Father Age: 96 CAD (coronary atherosclerotic disease) Family/Other Cancer Social History marital status: number of children: 2 household members: spouse lives independently: Yes caregiver/support person: No housing: house education level: college occupational status: previously employed Smoking Status: Former smoker second hand exposure: No alcohol intake: current substance use type: does not use Meds Home Medications and Allergies Home Medications Medication Instructions Recorded Confirmed Type tamsulosin 0.4 mg capsule (Flomax) 0.4 mg PO BEDTIME kidney stone #30 06/04/23 07/10/23 Rx caps Allergies Allergy/AdvReac Type Severity Reaction Status Date / Time No Known Drug Allergies Allergy Verified 07/10/23 09:29 Exam Vital Signs (past 8 hours): - 07/10/23 09:30 Temperature 97 F L Pulse Rate 48 L Respiratory Rate 16 Blood Pressure 162/90 H Pulse Oximetry 98 Oxygen Delivery Method Room Air Oxygen Delivery Method Room Air Const General: healthy appearing Resp Effort & Inspection: normal respiratory effort Assessment & Plan Assessment and plan (1) History of colonic polyps: Status: None Plan We reviewed the risks and benefits of colonoscopy for his personal history of colon polyps and he would like to proceed.
[2023-07-10 11:46] VITALS: BP 106/61; PULSE 54; RESP 15; TEMP 36.1; O2SAT 94
--- NOTE | 2023-07-10 11:49 | P.OP.COLON_ITS ---
Operative Date/Time/Diagnoses Date of procedure: 07/10/23 Time of procedure: 11:49 Pre-op diagnosis: History of colon polyps Post-op diagnosis: same Procedure & Clinicians Study performed: Colonoscopy Same procedure as scheduled: Yes Surgeon: Edil Burks Procedure Notes Procedure in detail: Surgeon: Edil Burks MD Anesthesia: Shikha Lopez DO Procedure: The patient was brought to the endoscopy suite, placed in left lateral decubitus position. The patient was connected to monitoring devices. A time-out was performed. Sedation was administered. Once the patient was adequately sedated, a digital rectal exam was performed and was normal. The scope was then inserted and advanced to the cecum where the appendiceal orifice was identified and photographed. The scope was then slowly withdrawn over greater than 6 minutes. The mucosa was thoroughly inspected. There were 4 vinh yps in the cecum and ascending colon, all less than 1 cm, all removed with a cold snare and sent together. There were a few scattered diverticula throughout the colon. The scope was retroflexed in the rectum. Internal hemorrhoids were noted and there was some abnormal appearing tissue just proximal to the internal hemorrhoids somewhat on the right side. A small cold forceps biopsy was performed from this tissue. The scope was straightened and removed. The patient was awakened and brought to recovery. Scope withdrawal time: 17 minutes Sedation time: 22 minutes EBL: 10 mL Findings: Several polyps in the cecum and ascending colon and some questionable tissue in the rectum Post-procedure Disposition: PACU
[2023-07-10 11:51] VITALS: BP 106/66; PULSE 52; RESP 14; O2SAT 94
[2023-07-10 11:56] VITALS: BP 115/68; PULSE 58; RESP 16; TEMP 36.1; O2SAT 97
[2023-07-10 12:01] VITALS: BP 116/79; PULSE 50; RESP 19; TEMP 36.4; O2SAT 97
[2023-07-10 12:13] VITALS: BP 121/76; PULSE 48; RESP 16; TEMP 36.6; O2SAT 98
== END 2023-07-10 12:28 | disposition home or self-care (01) ==
PROVIDERS: PCP Family Medicine; Referring Provider Surgery; Visit Provider Surgery
PROC: 0DJD8ZZ Inspection of Lower Intestinal Tract, Via Natural or Artificial Opening Endoscopic (ICD-10-PCS; CPT 45378; principal; 2023-07-10 10:15)
DX: Z12.11 Encounter for screening for malignant neoplasm of colon (principal); Z86.010 Personal history of colon polyps; K57.30 Diverticulosis of large intestine without perforation or abscess without bleeding; K64.8 Other hemorrhoids; D12.2 Benign neoplasm of ascending colon
CPT/HCPCS: 45385; J2704

== ENCOUNTER → 2024-04-09 09:07 | Outpatient (CLI) | payer MEDICARE, SELFPAY ==
[2024-04-09 09:52] LABS: Add Manual Diff / Slide Review NO; Basophils Absolute Auto 0 /uL (0-100); Basophils Percent Auto 0.7 % (0-2); Eosinophils Absolute Auto 100 /uL (0-450); Eosinophils Percent Auto 2.6 % (2-4); Hematocrit 47.2 % (41-53); Hemoglobin 15.9 g/dL (13.5-17.5); Lymphocytes Absolute Auto 1200 /uL (1100-4500); Lymphocytes Percent Auto 27.1 % (25-40); Mean Corpuscular HGB Conc 33.6 % (30-36); Mean Corpuscular Hemoglobin 32.9 PG (26-34); Monocytes Absolute Auto 500 /uL (0-900); Monocytes Percent Auto 11.1 % (3-14); Neutrophils Absolute Auto 2500 /uL (1500-7000); Neutrophils Percent Auto 58.5 % (50-75); Platelet Count 215 X10^3/uL (150-400); Red Blood Cell Count 4.82 X10^6/uL (4.5-5.9); Red Cell Distribution Width 13.8 % (11.6-14.8); White Blood Cell Count 4.3 X10^3/uL (4.5-11.0)
[2024-04-09 10:32] LABS: BUN Creatinine Ratio 21.3 (6-22); Blood Urea Nitrogen 19 mg/dL (9-20); Calcium 9.4 mg/dL (8.4-10.2); Carbon Dioxide 29 mmol/L (22-32); Chloride 107 mmol/L (98-107); Estimated Glomerular Filt Rate > 60 mL/min (>60); Glucose 101 mg/dL (80-110); HEMOLYSIS < 15 (0-50); Potassium 5.3 mmol/L (3.4-5.1); Sodium 140 mmol/L (137-145)
[2024-04-09 10:44] LABS: Vitamin D 25 Hydroxy (D3) 38.8 ng/mL (30.0-100.0)
[2024-04-09 11:00] LABS: Prostate Specific Antigen Scrn 5.19 ng/mL (0.1-4.0)
[2024-04-09 11:15] LABS: Hep C Virus Ab w/Reflex Quant NEGATIVE s/c (NEGATIVE)
[2024-04-09 11:19] LABS: Vitamin B12 271 pg/mL (239-931)
== END ==
PROVIDERS: PCP Family Medicine; Referring Provider Family Medicine; Visit Provider Family Medicine
DX: Z00.00 Encounter for general adult medical examination without abnormal findings (principal); R42 Dizziness and giddiness; Z12.5 Encounter for screening for malignant neoplasm of prostate; R00.1 Bradycardia, unspecified; G62.9 Polyneuropathy, unspecified; R97.20 Elevated prostate specific antigen [PSA]; D72.819 Decreased white blood cell count, unspecified
CPT/HCPCS: 36415; 80048; 82306; 82607; 85025; 86803; G0103

== ENCOUNTER → 2024-09-06 13:19 | Outpatient (CLI) | payer MEDICARE, SELFPAY ==
[2024-09-06 15:06] LABS: BUN Creatinine Ratio 20.2 (6-22); Blood Urea Nitrogen 21 mg/dL (9-20); Calcium 9.6 mg/dL (8.4-10.2); Carbon Dioxide 25 mmol/L (22-32); Chloride 105 mmol/L (98-107); Estimated Glomerular Filt Rate > 60 mL/min (>60); Glucose 103 mg/dL (80-110); HEMOLYSIS < 15 (0-50); Sodium 137 mmol/L (137-145)
[2024-09-06 15:38] LABS: Prostate Specific Antigen Scrn 5.65 ng/mL (0.1-4.0)
== END ==
LOC: LAB 13:20
PROVIDERS: PCP Family Medicine; Referring Provider Family Medicine; Visit Provider Family Medicine
DX: Z12.5 Encounter for screening for malignant neoplasm of prostate (principal); E87.5 Hyperkalemia; R97.20 Elevated prostate specific antigen [PSA]
CPT/HCPCS: 36415; 80048; G0103

== ENCOUNTER → 2024-11-15 07:25 | Outpatient (CLI) | payer MEDICARE, SELFPAY ==
[2024-11-15 07:53] LABS: Hemoglobin A1C% w Est Avg Glu 5.4 % (4.0-6.0)
[2024-11-15 07:59] LABS: Appearance Urine UA CLEAR; Bilirubin Urine UA NEGATIVE (NEGATIVE); Color Urine UA YELLOW; Glucose Urine UA NEGATIVE (Negative); Ketones Urine UA NEGATIVE (NEGATIVE); Leukocyte Esterase Urine UA NEGATIVE (NEGATIVE); Nitrite Urine UA NEGATIVE (Negative); Occult Blood Urine UA NEGATIVE (Negative); Protein Urine UA NEGATIVE (Negative); Specific Gravity Urine UA 1.025 (1.000-1.035); Urobilinogen Urine UA 0.2 E.U./dL (0.2); pH Urine UA 5.5 (4.5-8.0)
[2024-11-15 08:04] LABS: Urine Volume 10mL (spun)
[2024-11-15 08:05] LABS: Bacteria Urine None Seen; Culture Indicated Urine Cult Not Indicated; RBC Urine None Seen (0-5/HPF); Squamous Epithelial Cell Urine None Seen (0-5/HPF); WBC Urine None Seen (0-5/HPF)
[2024-11-15 08:38] LABS: TSH w/ Reflex to FT4 1.98 uIU/mL (0.47-4.68)
[2024-11-15 08:57] LABS: Vitamin B12 800 pg/mL (239-931)
== END ==
PROVIDERS: PCP Family Medicine; Referring Provider Family Medicine; Visit Provider Family Medicine
DX: Z00.00 Encounter for general adult medical examination without abnormal findings (principal); Z13.1 Encounter for screening for diabetes mellitus; E03.8 Other specified hypothyroidism; E53.8 Deficiency of other specified B group vitamins; R30.0 Dysuria; D72.819 Decreased white blood cell count, unspecified
CPT/HCPCS: 36415; 81001; 82607; 83036; 84443

== ENCOUNTER → 2024-11-24 15:09 | Outpatient (CLI) | payer MEDICARE, SELFPAY | LOC: CAR 15:09 | PROVIDERS: PCP Family Medicine; Referring Provider Family Medicine; Visit Provider Family Medicine | DX: R00.2 Palpitations (principal); R42 Dizziness and giddiness | CPT/HCPCS: 93246 ==

== ENCOUNTER → 2024-12-16 14:54 | Outpatient (CLI) | payer MEDICARE, SELFPAY ==
--- NOTE | 2024-12-16 14:56 | DI.ECHO.S_ITS ---
[facility] : : [address] : : [place] : : [address] : : Phone: [phone] Echocardiogram Report + + :Name: BRADLEY MCKEON Study Date: 12/16/2024 Height: 72 in : :Hospital ReadingLocation: Weight: 205 lb : : Gender: Male BSA: 2.2 m2 : :: 1955 Age: 69 yrs BP: 157/105 mmHg: :Reason For Study: DIZZINESS, HYPERTENSION : :Ordering Physician: DAVID, : :ELROY Performed By: Lázaro Oreilly : :Referring: ELROY HERNANDEZ : + + Interpretation Summary Left ventricular wall thickness is mildly increased. The ejection fraction is estimated to be 50-55%. The aortic root is mildly dilated. There is no significant valvular heart disease. Procedure: A two-dimensional transthoracic echocardiogram with color flow and Doppler was performed. The study quality was technically good. There is no prior echocardiogram noted for this patient. The patient was in normal sinus rhythm during the exam. Left Ventricle: The left ventricle is normal in size. Left ventricular wall thickness is mildly increased. The ejection fraction is estimated to be 50- 55%. There are no focal wall motion abnormalities. Diastolic parameters suggest probable normal left ventricular diastolic function and normal filling pressures. Right Ventricle: The right ventricle is mildly dilated. The right ventricular systolic function is normal. Atria: The left atrium is moderately dilated. Right atrial size is normal. There is no Doppler evidence for an atrial septal defect. Mitral Valve: The mitral valve leaflets appear normal. There is no evidence of stenosis, fluttering, or prolapse. There is trace mitral regurgitation. Aortic Valve: The aortic valve is trileaflet. The aortic valve opens well. No aortic regurgitation is present. Tricuspid Valve: The tricuspid valve leaflets are thin and pliable. There is trace tricuspid regurgitation. Pulmonic Valve: The pulmonic valve leaflets are thin and pliable; valve motion is normal. There is trace pulmonic regurgitation. Great Vessels: The aortic root is mildly dilated. The dimensions of the ascending aorta are normal. The pulmonary artery is not well visualized, but is probably normal size. The inferior vena cava was not visualized. Pericardium/ Pleura There is no pericardial effusion. MMode/2D Measurements & Calculations LVIDd: 5.0 cm LVOT diam: 2.3 cm LVIDs: 3.9 cm Ao root diam: 3.9 cm FS: 21.0 % asc Aorta Diam: 3.5 cm EPSS: 1.0 cm IVSd: 1.3 cm LVPWd: 1.4 cm LV al. diameter/BSA (cm/m^2): 2.3 LV sys. diameter/BSA (cm/m^2): 1.8 LA A2 area: 27.3 cm2 RA long axis: 4.6 cm LA A4 area: 27.3 cm2 RA area: 14.9 cm2 LA length (vol): 6.8 cm RA vol: 40.6 ml LA vol: 92.9 ml RA : 18.8 ml/m2 LA vol index: 43.2 ml/m2 RVD1 (basal): 4.5 cm RVD2 (mid): 3.9 cm TAPSE: 2.3 cm Doppler Measurements & Calculations Ao V2 max: 95.5 cm/sec LVOT Max Bello: 76.4 cm/sec Ao V2 mean: 75.7 cm/sec LV V1 max P.3 mmHg Ao max P.7 mmHg LV V1 VTI: 16.1 cm Ao mean P.4 mmHg SANDRA(I,D): 3.5 cm2 Ao V2 VTI: 20.1 cm SANDRA(V,D): 3.5 cm2 sev ratio: 0.80 SANDRA indexed to BSA (cm^2/m^2): 1.6 MV E max bello: 84.4 cm/sec TR max bello: 237.0 cm/sec MV A max bello: 24.3 cm/sec TR max P.5 mmHg MV E/A: 3.5 PA V2 max: 69.9 cm/sec Med Peak E' Bello: 8.4 cm/sec PA V2 mean: 49.1 cm/sec E/E' med: 10.0 PA mean P.1 mmHg Lat Peak E' Bello: 10.0 cm/sec PA pr(Accel): 43.0 mmHg E/E' lat: 8.5 E/e' average: 9.2 MV dec time: 0.10 sec SV(LVOT): 69.8 ml Reading Physician:04:21 PM
== END ==
PROVIDERS: PCP Family Medicine; Referring Provider Family Medicine; Visit Provider Family Medicine
DX: I77.810 Thoracic aortic ectasia (principal); I10 Essential (primary) hypertension; R42 Dizziness and giddiness
CPT/HCPCS: 93306

== ENCOUNTER → 2025-05-02 08:11 | Outpatient (CLI) | payer MEDICARE, SELFPAY ==
[2025-05-02 09:33] LABS: Add Manual Diff / Slide Review NO; Hematocrit 48.0 % (41-53); Hemoglobin 16.1 g/dL (13.5-17.5); Lymphocytes Absolute Auto 1300 /uL (1100-4500); Mean Corpuscular HGB Conc 33.5 % (30-36); Mean Corpuscular Hemoglobin 33.4 PG (26-34); Mean Corpuscular Volume 99.6 fL (80-100); Platelet Count 185 X10^3/uL (150-400)
== END ==
PROVIDERS: PCP Family Medicine; Referring Provider Internal Medicine; Visit Provider Internal Medicine
DX: I48.92 Unspecified atrial flutter (principal)
CPT/HCPCS: 36415; 85025

== ENCOUNTER → 2025-06-22 09:46 | Outpatient (CLI) | payer MEDICARE, SELFPAY ==
[2025-06-22 14:14] LABS: Hematocrit 45.5 % (41-53); Hemoglobin 15.2 g/dL (13.5-17.5); Mean Corpuscular HGB Conc 33.5 % (30-36); Mean Corpuscular Hemoglobin 32.8 PG (26-34); Mean Corpuscular Volume 97.9 fL (80-100); Platelet Count 216 X10^3/uL (150-400)
[2025-06-22 14:53] LABS: Alanine Aminotransferase 36 IU/L (<50); Albumin 4.3 g/dL (3.5-5.0); Albumin Globulin Ratio 1.4 (1.0-2.8); Alkaline Phosphatase 59 U/L (38-126); Blood Urea Nitrogen 23 mg/dL (9-20); Calcium 9.4 mg/dL (8.4-10.2); Carbon Dioxide 22 mmol/L (22-32); Chloride 104 mmol/L (98-107); Cholesterol 173 mg/dL (140-199); Estimated Glomerular Filt Rate > 60 mL/min (>60); Globulin 3.1 g/dL (1.7-4.1); Glucose 91 mg/dL (70-99); HDL Cholesterol 83 mg/dL (40-60); HEMOLYSIS < 15 (0-50); Potassium 4.7 mmol/L (3.4-5.1); Sodium 136 mmol/L (137-145); Total Protein 7.4 g/dL (6.3-8.2); Triglycerides 49 mg/dL (35-150); Uric Acid 3.9 mg/dL (3.5-8.5)
== END ==
PROVIDERS: PCP Family Medicine; Referring Provider Family Medicine; Visit Provider Urology
DX: Z00.00 Encounter for general adult medical examination without abnormal findings (principal); I10 Essential (primary) hypertension; Z87.898 Personal history of other specified conditions; Z12.5 Encounter for screening for malignant neoplasm of prostate; R42 Dizziness and giddiness; M10.9 Gout, unspecified
CPT/HCPCS: 36415; 80053; 80061; 84550; 85027; G0103

== ENCOUNTER → 2025-08-01 11:07 | Outpatient (CLI) | payer MEDICARE, SELFPAY ==
[2025-08-01 12:47] LABS: Prostate Specific Antigen 3.65 ng/mL (0.10-4.00)
== END ==
PROVIDERS: PCP Family Medicine; Referring Provider Urology; Visit Provider Urology
DX: Z87.898 Personal history of other specified conditions (principal)
CPT/HCPCS: 36415; 84153

== ENCOUNTER → 2025-09-12 16:34 | Outpatient (CLI) | payer MEDICARE, SELFPAY ==
[2025-09-12 17:33] LABS: Add Manual Diff / Slide Review NO; Hematocrit 45.8 % (41-53); Hemoglobin 15.6 g/dL (13.5-17.5); Lymphocytes Absolute Auto 1600 /uL (1100-4500); Mean Corpuscular HGB Conc 34.0 % (30-36); Mean Corpuscular Hemoglobin 32.8 PG (26-34); Mean Corpuscular Volume 96.6 fL (80-100); Platelet Count 203 X10^3/uL (150-400)
[2025-09-12 17:57] LABS: Blood Urea Nitrogen 19 mg/dL (9-20); Calcium 9.5 mg/dL (8.4-10.2); Carbon Dioxide 29 mmol/L (22-32); Chloride 102 mmol/L (98-107); Estimated Glomerular Filt Rate > 60 mL/min (>60); Glucose 152 mg/dL (70-99); HEMOLYSIS < 15 (0-50); Potassium 4.2 mmol/L (3.4-5.1); Sodium 137 mmol/L (137-145)
== END ==
PROVIDERS: PCP Family Medicine; Referring Provider Internal Medicine; Visit Provider Internal Medicine
DX: I48.19 Other persistent atrial fibrillation (principal)
CPT/HCPCS: 36415; 80048; 85025

== ENCOUNTER 2025-09-15 21:01 | Emergency (ER) | payer MEDICARE, SELFPAY ==
[2025-09-15 21:11] VITALS: BP 180/90; PULSE 87; RESP 17; TEMP 36.7; O2SAT 100; BMI 27.6
[2025-09-15] MEDS: ONDANSETRON 4 MG ODT SL (22:38)
[2025-09-16 00:08] VITALS: PULSE 67; O2SAT 95
[2025-09-16 00:09] VITALS: BP 178/95; PULSE 72; RESP 18; O2SAT 96
--- NOTE | 2025-09-16 00:15 | DI.CT.S_ITS ---
PROCEDURE: CT CHEST ABD PEL W CON INDICATIONS: ab pain nausea with post cardaic ablation TECHNIQUE: After the administration of intravenous contrast, 5 mm thick sections acquired from the lung apices to the symphysis. 5 mm coronal and sagittal reformats were performed, with additional 7 mm MIP reformats through the lungs. For radiation dose reduction, the following was used: automated exposure control, adjustment of mA and/or kV according to patient size. COMPARISON: None. FINDINGS: Image quality: Excellent. CHEST: Lower Neck: No enlarged lymph nodes. Thyroid: No thyroid nodules which require sonographic follow up, per consensus guidelines. Axillae: No enlarged lymph nodes. Chest Wall: Unremarkable. Lungs and Pleura: No pneumothorax or pleural effusions. Bibasilar atelectasis. No suspicious pulmonary nodules. Heart: Heart size is normal. No pericardial effusion. Coronary calcifications. Thoracic Vessels: The aorta and pulmonary arteries demonstrate normal size. Mediastinum and Natalie: No enlarged lymph nodes. Esophagus: No wall thickening. No hiatal hernia. ABDOMEN: Liver: Diffuse hypoattenuation, suggestive of steatosis. No solid mass. Gallbladder: No radiopaque gallstones or wall thickening. Biliary ducts: No biliary dilation. Pancreas: No ductal dilation. Spleen: Size is within normal limits. Adrenal Glands: No adrenal nodules. Kidneys and Ureters: No hydronephrosis. No solid mass. No complex renal cystic lesion which requires follow up. Punctate non-obstructing stone in the right lower pole. Stomach and Bowel: Normal colonic caliber, without significant wall thickening. Scattered colonic diverticula without acute diverticulitis. Normal appendix. Peritoneum: No abnormal intraperitoneal fluid. No free air. Ventral Wall: No significant ventral hernia. Abdominal Nodes: No retroperitoneal or mesenteric adenopathy by size criteria. Vessels: Aorta and inferior vena cava are normal in size. PELVIS: Pelvic Organs: Unremarkable. Bladder: No bladder wall thickening, accounting for underdistention. Pelvic Nodes: No enlarged lymph nodes. Miscellaneous: No inguinal hernias are seen. Bones: No aggressive osseous abnormality. Degenerative changes of the visualized osseous structures. IMPRESSION: No acute abnormalities identified in the chest, abdomen or pelvis to explain patient's symptoms. Dictated by: Chuyita Zaragoza M.D. on 09/16/2025 at 1:42 Approved by: Chuyita Zaragoza M.D. on 09/16/2025 at 1:46
--- NOTE | 2025-09-16 00:19 | ED.NAVMDI ---
HPI - Nausea/Vomiting/Diarrhea General Chief complaint: Nausea/Vomiting/Diarrhea Stated complaint: Cardio ablation yest; nausea today, elevated BP Time Seen by Provider: 09/16/25 00:09 Source: patient Mode of arrival: Ambulatory History of Present Illness HPI Narrative: Patient is 70-year-old male history of atrial fibrillation had an ablation yesterday as [facility] presenting today with abdominal pain and nausea. He has not vomited. He has no chest pain or shortness of breath. They went in through both groins feels like the left groin is a little bit more med overall feels fine. Mostly feels like he is up in his very distended feeling nauseous without vomiting or fever. Related Data Home Medications ?Medication ?Instructions ?Recorded ?Confirmed ascorbate calcium (vitamin C) 500 1 g PO DAILY 04/27/25 09/21/25 mg tablet magnesium carb,citrate,oxide mg PO DAILY 04/27/25 09/21/25 (Magnesium Complex) mecobalamin (vitamin B12) 1,000 1,000 mcg PO DAILY 04/27/25 09/21/25 mcg chewable tablet omeprazole 20 mg capsule,delayed 20 mg PO DAILY 09/21/25 09/21/25 release Previous Rx's ?Medication ?Instructions ?Recorded apixaban 5 mg tablet (Eliquis) 5 mg PO BID #180 tabs 04/18/25 allopurinol 300 mg tablet 300 mg PO DAILY gout prevention 04/27/25 #100 tabs colchicine 0.6 mg tablet 0.6 mg PO BID #60 tabs 09/21/25 Allergies Allergy/AdvReac Type Severity Reaction Status Date / Time No Known Drug Allergies Allergy Verified 09/21/25 08:05 Patient History Medical History (Updated 09/21/25 @ 08:35 by Jac Villagomez DO) Atrial flutter Deafness in right ear Encounter for initial annual wellness visit (AWV) in Medicare patient Gout Subclinical hypothyroidism Leukopenia History of sun exposure, moderate Keratosis Elevated PSA measurement Swallowing difficulty Family history of colon cancer Surgical History History of lithotripsy (03/14/16) Status post hernia repair Status post colonoscopy History of vasectomy Family History Father Age: 99 CAD (coronary atherosclerotic disease) Family/Other Cancer Social History marital status: number of children: 2 household members: spouse lives independently: Yes caregiver/support person: No housing: house education level: college occupational status: previously employed Smoking Status: Former smoker second hand exposure: No alcohol intake: current substance use type: does not use Smoking Status: Former smoker alcohol intake frequency: 0-2 drinks per day Alcohol type: wine Exam Initial Vital Signs Initial Vital Signs: Vital Signs Temperature 98.0 F 09/15/25 21:11 Pulse Rate 87 09/15/25 21:11 Respiratory Rate 17 09/15/25 21:11 Blood Pressure 180/90 H 09/15/25 21:11 Pulse Oximetry 100 09/15/25 21:11 Oxygen Delivery Method Room Air 09/15/25 21:11 GENERAL: and in [no acute] distress. HEENT: Head atraumatic,EOMI, pupils reactive, face symmetric, [moist] mucous membranes CARDIOVASCULAR: Regular rate and rhythm without murmurs, rubs or gallops. RESPIRATORY: Breath sounds equal bilaterally, no wheezes rales or rhonchi. ABDOMEN: Soft, nontender. Normoactive bowel sounds all 4 quadrants. No guarding or rebound. EXTREMITIES: Normal range of motion, no clubbing or edema. Neurovascularly intact NEUROLOGICAL: Alert and oriented x4.Normal gait and speech. Cranial nerves II through XII grossly intact. SKIN: Warm, dry, no laceration, no petechiae, no rashes or lesions. Course Orders Ordered: Discontinued Medications Ondansetron HCl (Ondansetron 4 Mg Odt) 4 mg SL NOW ONE Stop: 09/15/25 22:32 Last Admin: 09/15/25 22:38 Dose: 4 mg Documented By: BRIAN Ondansetron HCl (Ondansetron 4 Mg/2 Ml Inj) 4 mg IV NOW ONE Stop: 09/16/25 00:18 Last Admin: 09/16/25 00:48 Dose: 4 mg Documented By: DEWEY Vital Signs Vital signs: Vital Signs - 8 hr 09/15/25 21:11 09/16/25 00:08 09/16/25 00:09 Temperature 98.0 F Pulse Rate 87 67 72 Respiratory Rate 17 18 Blood Pressure 180/90 H 178/95 H Pulse Oximetry 100 95 96 Oxygen Delivery Method Room Air Room Air 09/16/25 00:30 09/16/25 01:00 09/16/25 01:00 Temperature Pulse Rate 62 63 Respiratory Rate 18 13 Blood Pressure 166/93 H Pulse Oximetry 96 95 Oxygen Delivery Method MDM - Nausea/Vomiting/Diarrhea Lab Data 09/16/25 00:40 09/16/25 00:40 Labs: Lab Results 09/16/25 Range/Units 00:40 WBC 9.0 (4.5-11.0) X10^3/uL RBC 4.88 (4.5-5.9) X10^6/uL Hgb 16.0 (13.5-17.5) g/dL Hct 46.9 (41-53) % MCV 96.1 (80-100) fL MCH 32.8 (26-34) PG MCHC 34.2 (30-36) % RDW 14.3 (11.6-14.8) % Plt Count 190 (150-400) X10^3/uL Neut % (Auto) 76.1 H (50-75) % Lymph % (Auto) 14.6 L (25-40) % [place] % (Auto) 8.6 (3-14) % Eos % (Auto) 0.4 L (2-4) % Baso % (Auto) 0.3 (0-2) % Neut # (Auto) 6900 (4193-7102) /uL Lymph # (Auto) 1300 (5493-2205) /uL [place] # (Auto) 800 (0-900) /uL Eos # (Auto) 0 (0-450) /uL Baso # (Auto) 0 (0-100) /uL Sodium 138 (137-145) mmol/L Potassium 4.0 (3.4-5.1) mmol/L Chloride 101 (98-107) mmol/L Carbon Dioxide 26 (22-32) mmol/L BUN 20 (9-20) mg/dL Creatinine 0.97 (0.66-1.25) mg/dL Estimated GFR > 60 (>60) mL/min BUN/Creatinine Ratio 20.6 (6-22) Glucose 108 H (70-99) mg/dL Calcium 9.2 (8.4-10.2) mg/dL Magnesium 1.9 (1.6-2.3) mg/dL Total Bilirubin 0.9 (0.2-1.3) mg/dL AST 52 (17-59) IU/L ALT 58 H (<50) IU/L Alkaline Phosphatase 68 (38-126) U/L NT-Pro-B Natriuret Pep 303 H (<125) pg/mL Total Protein 8.6 H (6.3-8.2) g/dL Albumin 4.8 (3.5-5.0) g/dL Globulin 3.8 (1.7-4.1) g/dL Albumin/Globulin Ratio 1.3 (1.0-2.8) Lipase 339 H (23-300) U/L Urine Dip Bedside Urine Glucose Negative Bedside Urine Bilirubin - Negative Bedside Urine Ketone - Negative Urine Specific [place] 1.015 Bedside Urine Occult Blood - Negative Bedside Urine pH 6.0 Bedside Urine Protein - Negative Bedside Urine Urobilinogen - Negative Bedside Urine Nitrite - Negative Bedside Urine Leukocytes - Negative Esterase Imaging Data CT scan - abdomen/pelvis: Radiologist's Impression: PROCEDURE: CT CHEST ABD PEL W CON INDICATIONS: ab pain nausea with post cardaic ablation TECHNIQUE: After the administration of intravenous contrast, 5 mm thick sections acquired from the lung apices to the symphysis. 5 mm coronal and sagittal reformats were performed, with additional 7 mm MIP reformats through the lungs. For radiation dose reduction, the following was used: automated exposure control, adjustment of mA and/or kV according to patient size. COMPARISON: None. FINDINGS: Image quality: Excellent. CHEST: Lower Neck: No enlarged lymph nodes. Thyroid: No thyroid nodules which require sonographic follow up, per consensus guidelines. Axillae: No enlarged lymph nodes. Chest Wall: Unremarkable. Lungs and Pleura: No pneumothorax or pleural effusions. Bibasilar atelectasis. No suspicious pulmonary nodules. Heart: Heart size is normal. No pericardial effusion. Coronary calcifications. Thoracic Vessels: The aorta and pulmonary arteries demonstrate normal size. Mediastinum and Natalie: No enlarged lymph nodes. Esophagus: No wall thickening. No hiatal hernia. ABDOMEN: Liver: Diffuse hypoattenuation, suggestive of steatosis. No solid mass. Gallbladder: No radiopaque gallstones or wall thickening. Biliary ducts: No biliary dilation. Pancreas: No ductal dilation. Spleen: Size is within normal limits. Adrenal Glands: No adrenal nodules. Kidneys and Ureters: No hydronephrosis. No solid mass. No complex renal cystic lesion which requires follow up. Punctate non-obstructing stone in the right lower pole. Stomach and Bowel: Normal colonic caliber, without significant wall thickening. Scattered colonic diverticula without acute diverticulitis. Normal appendix. Peritoneum: No abnormal intraperitoneal fluid. No free air. Ventral Wall: No significant ventral hernia. Abdominal Nodes: No retroperitoneal or mesenteric adenopathy by size criteria. Vessels: Aorta and inferior vena cava are normal in size. PELVIS: Pelvic Organs: Unremarkable. Bladder: No bladder wall thickening, accounting for underdistention. Pelvic Nodes: No enlarged lymph nodes. Miscellaneous: No inguinal hernias are seen. Bones: No aggressive osseous abnormality. Degenerative changes of the visualized osseous structures. IMPRESSION: No acute abnormalities identified in the chest, abdomen or pelvis to explain patient's symptoms. Dictated by: Chuyita Zaragoza M.D. on 09/16/2025 at 1:42 ECG Data Attestation: I personally reviewed and interpreted this ECG as follows: Interpretation: Normal sinus rhythm rate 63 MI interval 202 QRS [address] changes no T-wave inversion MDM Narrative Medical decision making narrative: Patient is 70-year-old male presenting today with abdominal pain and bloating he had a cardiac ablation done yesterday. No chest pain or shortness of breath he is noted to be in sinus rhythm. Blood work has been reviewed CBC shows no leukocytosis no anemia CMP is within limits no JOSE no electrolyte abnormalities magnesium is 1.9 Bilirubin liver enzymes lipase with it over limits CT chest and pelvis shows no abnormalities EKGs shows a sinus rhythm Patient overall appears well he is in sinus rhythm abdomen does seem a little distended but CT does not show any evidence of a bowel obstruction constipation or other abnormality. At this time and follow up as an outpatient. He has not had any vomiting here Discharge Plan Departure Patient Disposition: Home Clinical Impression: Abdominal pain Instructions: DI for Abdominal Pain-Adult Activity Restrictions/Additional Instructions: *You have been diagnosed with abdominal pain *What to do: At this time increase activity as tolerated per cardiology instructions. May take a MiraLax he feel like UR constipated *Continue to take medications as directed *Follow up with your primary care provider in 2-3 days or call [phone] *Return to ER if you should have increasing abdominal pain chest pain shortness of breath passing out [or] any new, worsening or concerning symptoms Prescriptions: No Action Eliquis 5 mg tablet 5 mg PO BID Qty: 180 3RF ascorbate calcium (vitamin C) 500 mg tablet 1 g PO DAILY mecobalamin (vitamin B12) 1,000 mcg tablet,chewable 1,000 mcg PO DAILY Magnesium Complex 300 mg magnesium tablet PO DAILY allopurinol 300 mg tablet 300 mg PO DAILY Qty: 100 3RF omeprazole 20 mg capsule,delayed release(DR/EC) 20 mg PO DAILY colchicine 0.6 mg tablet 0.6 mg PO BID Qty: 60 3RF Rx Instructions: continue for 1-2 days after flare resolves Referrals: Jac Villagomez DO [Primary Care Provider, Family Practice] Stand Alone Forms: Patient Portal/API
[2025-09-16 00:30] VITALS: PULSE 62; RESP 18; O2SAT 96
--- NOTE | 2025-09-16 00:47 | EKG_ITS ---
[place] [id number] [place] [id number] Test Date: 2025-09-16 Pat Name: Ty Estrada Department: [facility] Room: Gender: Male Microphone Operator: KOSTA : 1955 Requested By: Order Number: [id number] Reading MD: Isidro Smith Measurements Intervals [place] Rate: 63 P: 62 WI: 202 QRS: -7 QRSD: 104 T: 10 QT: 420 QTc: 429 Interpretive Statements Sinus rhythm with premature supraventricular complexes Minimal voltage criteria for LVH, may be normal variant ( R in aVL ) Electronically Signed On 09-17-2025 13:30:55 PST by Isidro Smith
[2025-09-16] MEDS: ONDANSETRON 4 MG/2 ML INJ IV (00:48)
[2025-09-16 01:00] VITALS: BP 166/93; PULSE 63; RESP 13; O2SAT 95
[2025-09-16 01:03] LABS: Add Manual Diff / Slide Review NO; Hematocrit 46.9 % (41-53); Hemoglobin 16.0 g/dL (13.5-17.5); Lymphocytes Absolute Auto 1300 /uL (1100-4500); Mean Corpuscular HGB Conc 34.2 % (30-36); Mean Corpuscular Hemoglobin 32.8 PG (26-34); Mean Corpuscular Volume 96.1 fL (80-100); Platelet Count 190 X10^3/uL (150-400)
[2025-09-16 01:11] LABS: Alanine Aminotransferase 58 IU/L (<50); Albumin 4.8 g/dL (3.5-5.0); Albumin Globulin Ratio 1.3 (1.0-2.8); Alkaline Phosphatase 68 U/L (38-126); Blood Urea Nitrogen 20 mg/dL (9-20); Calcium 9.2 mg/dL (8.4-10.2); Carbon Dioxide 26 mmol/L (22-32); Chloride 101 mmol/L (98-107); Estimated Glomerular Filt Rate > 60 mL/min (>60); Globulin 3.8 g/dL (1.7-4.1); Glucose 108 mg/dL (70-99); HEMOLYSIS < 15 (0-50); Lipase 339 U/L (23-300); Magnesium 1.9 mg/dL (1.6-2.3); Potassium 4.0 mmol/L (3.4-5.1); Sodium 138 mmol/L (137-145); Total Protein 8.6 g/dL (6.3-8.2)
[2025-09-16 01:19] LABS: NT-proBNP (BNP-Adult 18+) 303 pg/mL (<125)
[2025-09-16 01:31] VITALS: PULSE 56; RESP 29
[2025-09-16 02:00] VITALS: BP 159/88; PULSE 63; RESP 20; O2SAT 94
== END 2025-09-16 02:25 | disposition home or self-care (01) ==
PROVIDERS: Emergency Provider Emergency Medicine; PCP Family Medicine
DX: R10.9 Unspecified abdominal pain (principal); R11.0 Nausea; Z98.890 Other specified postprocedural states; Z86.79 Personal history of other diseases of the circulatory system
CPT/HCPCS: 36415; 71260; 74177; 80053; 81003; 83690; 83735; 83880; 85025; 93005; 96374; 99284; J2405; Q9967